=== PATIENT | male | born 1955 | race Hispanic/Latino ===

== ENCOUNTER → 2017-10-16 | Day surgery (SDC) | payer MEDICARE ==
[2017-10-15 09:44] LABS: BASOPHILS % 0.6 % (0.0-1.0); EOSINOPHILS # (AUTO) 0.1 (0.0-0.4); EOSINOPHILS % 1.3 % (0.0-6.0); HEMATOCRIT 48.4 % (38.2-49.6); LYMPHOCYTES # (AUTO) 1.9 (1.0-3.2); MEAN CORPUSCULAR HEMOGLOBIN 28.5 pg (28-32); MEAN CORPUSCULAR HGB CONC 33.1 g/dL (31-35); MEAN CORPUSCULAR VOLUME 86.3 fL (81-99); MONOCYTES # (AUTO) 0.5 (0.2-0.8); MONOCYTES % 8.6 % (4.4-11.3); NEUTROPHILS # (AUTO) 2.9 (2.1-6.9); NEUTROPHILS % 54.3 % (38.7-80.0); PLATELET COUNT 169 x10e3/uL (140-360); RED BLOOD COUNT 5.61 x10e6/uL (4.3-5.7); RED CELL DISTRIBUTION WIDTH 12.7 % (11.7-14.4)
[2017-10-15 10:07] LABS: ALANINE AMINOTRANSFERASE 16 IU/L (0-55); ALBUMIN 3.8 g/dL (3.5-5.0); ALKALINE PHOSPHATASE 69 IU/L (40-150); ANION GAP 9.9 mmol/L (8-16); BLOOD UREA NITROGEN 12 mg/dL (7-26); BUN/CREATININE RATIO 10 (6-25); CALCIUM 9.5 mg/dL (8.4-10.2); CARBON DIOXIDE 29 mmol/L (22-29); CHLORIDE 105 mmol/L (98-107); CHOL/HDL RATIO 6.1 (3.9-4.7); CHOLESTEROL 188 MD/DL (0-199); CREATININE, SERUM 1.16 mg/dL (0.72-1.25); EST GLOMERULAR FILTRATION RATE > 60 ML/MIN (60-); GLUCOSE 143 mg/dL (74-118); HDL CHOLESTEROL 31 MG/DL (40-60); LDL CHOLESTEROL 116 MG/DL (60-130); POTASSIUM 4.9 mmol/L (3.5-5.1); SODIUM 139 mmol/L (136-145); TRIGLYCERIDES 205 MG/DL (0-149)
[2017-10-15 10:21] LABS: INR 0.93; PROTHROMBIN TIME 12.9 seconds (11.9-14.5)
[~2017-10-16] VITALS: Ht 162.6 cm; Wt 72.6 kg
[~2017-10-16] MED LIST: AMITRIPTYLINE H25 MG PO; ASPIRIN 325 MG TAB ONE; ASPIRIN81 MG PO; CLOPIDOGREL BISULFATE 75 MG TAB ONE; FENTANYL CITRATE/PF 100MCG/2 ML INJ ONE; GABAPENTIN400 MG PO; HEPARIN SOD (PORCINE) 1000 UNIT/ML 30ML ONE; HEPARIN SOD/SOD CHLORIDE 2,000 ML ONE; IOPAMIDOL 300MG/ML 100 ML INFUS..BTL IV ONE; IOPAMIDOL 370 MG/ML 200 ML INFUS..BTL INJ ONE; LIDOCAINE HCL 2% LOCAL 20 ML VIAL ONE; LISINOPRIL2.5 MG PO; METFORMIN HCL500 MG PO; MIDAZOLAM HCL 2 MG/2 ML VIAL ONE; NITROGLYCERIN/D5W 200 MCG/ML 250 ML ONE; ONDANSETRON HCL INJ 2 MG/ML VIAL ONE; PLAVIX75 MG PO; SODIUM CHLORIDE 0.9% 1000ML 1,000 ML ONE; TOPROL XL25 MG PO
--- NOTE | 2017-10-17 01:10 | Operative Report ---
DATE OF PROCEDURE: October 16, 2017 PROCEDURE INDICATIONS: Limb-limiting claudication to left more than right lower extremity and chest pain concerning for angina pectoris with prior history of coronary artery disease and prior stent, abnormal stress test. PROCEDURE COMPLICATIONS: None. ESTIMATED BLOOD LOSS: Less than 15 mL. PROCEDURES PERFORMED 1. Left heart catheterization. 2. Selective coronary angiography times 2. 3. Abdominal aortogram. 4. Selective lower extremity, bilateral. 5. Third-order catheter placement from right common femoral artery to left common femoral artery. 6. Additional third-order catheter placement from right common femoral artery to the popliteal artery for additional angiography below the knee vessels to initial visualized vessels. 7. Left peroneal artery percutaneous transluminal angioplasty with 2.5 x 150 ultra risk balloon. 8. Additional percutaneous transluminal angioplasty of the left dorsalis pedis trunk into the left posterior tibial artery with a 3 x 100 ultra risk balloon. 9. Attempted and aborted to cross left anterior tibial SENIOR DESIGN ENGINEER. PROCEDURE SUMMARY: After consent was obtained, patient was prepped and draped in a sterile fashion. The right common femoral artery was locally infiltrated with 2% lidocaine. Access was obtained using the micropuncture kit, and a 6-Fijian sheath was placed. All cannulas were placed over a leading wire. A JL4 and JR4 catheters were used for selective engagement in angiography of the left coronary and right coronary systems respectively. Omni flush catheter was used for abdominal aortogram. A 45 cm up and over a 6-Fijian sheath was used for angiography of the left lower extremity. Sheath was retrieved back also for angiography of the right lower extremity. Medina catheter was used for angiography from the left popliteal position with digital subtraction to the left lower extremity. Whisper wire and a roadrunner wire were used to cross the area of stenosis. A Jimenez wire was used with Whisper wire to the left peroneal artery, and a wire to the right posterior tibial artery. A 2.5 x 150 ultra risk balloon was used for the annuloplasty of the left peroneal artery to 8 atmospheres. Similarly, an angioplasty was performed of the left DP trunk into the posterior tibial artery with a 3 x 100 balloon to 8 atmospheres. FINAL ANGIOGRAPHIC RESULTS: LASHA-III flow with less than 10% residual stenosis across the treated area. No flow-limiting dissection or perforations, and 2-vessel runoff to the left foot. FINDINGS 1. LV pressure was 159/15 with end-diastolic pressure of 27. 2. Aortic pressure was 158/78. LV-gram was not done. 3. Left main large in caliber with 20% distal area of stenosis of the LAD and circumflex. 4. The LAD gives a high take of 1st diagonal, which has 50% stenosis. The distal LAD has 2 areas of patent stent. The first stent has 10% stenosis, and the distal LAD stent has 30% diffuse end-stent restenosis. Additional diagonals arise to the LAD, as well as distal perforators. The distal apical LAD has 40% area of focal stenosis. 5. The circumflex has a 50% ostial to proximal stenosis. It is medium in caliber and gives 2 obtuse marginals. 6. The right coronary artery is small in caliber, and seems to have been chronically occluded 100% with distal filling via collaterals. Overall, small caliber vessel. 7. The infrarenal abdominal aorta has 2 small aneurysms or areas of aortic ectasia. The iliac vessels have significant disease to the left internal iliac terminal branch of about 80%. Otherwise, less than 30% throughout. The femoral vessels, femoral, profunda femoris and superficial femoris bilaterally have less than 30% stenosis and so does the bilateral popliteal arteries. The tibials seemed occluded 100%. The right DP trunk, peroneal and posterior tibial arteries are patent. However, the peroneal arteries have an additional area of 70% mid-stenosis. 8. The left anterior tibial is 100% occluded proximal to distal throughout with no distal reconstitution. The left DP trunk has 60%. The left peroneal artery has 70% stenosis, and left posterior tibial artery has 70% stenosis. Post intervention, there was less than 10% residual stenosis to the left DP trunk, left peroneal artery and left posterior tibial artery. CONCLUSION: Successful revascularization of the left DP trunk, left peroneal artery and left posterior tibial artery with excellent final angiographic results. The left anterior tibial is not amenable for revascularization due to poor outflow of the graft. RECOMMENDATIONS: Aspirin 81 mg daily, clopidogrel 75 mg daily, bed rest, aggressive medical therapy for CAD. Job#: [id number] SC
== END | disposition home or self-care (01) ==
LOC: CATH LAB 07:48
PROVIDERS: ATTEND Internal Medicine Cardiovascular Disease
DX: I25.119 Atherosclerotic heart disease of native coronary artery with unspecified angina pectoris (principal); I25.82 Chronic total occlusion of coronary artery; I70.213 Atherosclerosis of native arteries of extremities with intermittent claudication, bilateral legs; I77.1 Stricture of artery; I25.2 Old myocardial infarction; Z95.5 Presence of coronary angioplasty implant and graft; R94.39 Abnormal result of other cardiovascular function study; E78.5 Hyperlipidemia, unspecified; I10 Essential (primary) hypertension; E11.9 Type 2 diabetes mellitus without complications; G62.9 Polyneuropathy, unspecified; Z01.810 Encounter for preprocedural cardiovascular examination; Z79.82 Long term (current) use of aspirin; Z79.02 Long term (current) use of antithrombotics/antiplatelets; Z82.49 Family history of ischemic heart disease and other diseases of the circulatory system
CPT/HCPCS: 36415; 37228; 37232; 77002; 80053; 80061; 85025; 85610; 93005; C1725 ×2; C1760; C1769; C1887; J1644; J2001; J2250; J2405; J7030; Q9967 ×2; 36140; 75630; 75716; 93452; 93458

== ENCOUNTER 2018-03-12 07:42 | Observation (INO) | payer MEDICARE ==
[2018-03-11 15:26] LABS: BASOPHILS % 0.3 % (0.0-1.0); EOSINOPHILS # (AUTO) 0.1 (0.0-0.4); EOSINOPHILS % 1.7 % (0.0-6.0); HEMATOCRIT 46.1 % (38.2-49.6); LYMPHOCYTES # (AUTO) 2.2 (1.0-3.2); LYMPHOCYTES % 33.8 % (18.0-39.1); MEAN CORPUSCULAR HEMOGLOBIN 27.5 pg (28-32); MEAN CORPUSCULAR HGB CONC 32.5 g/dL (31-35); MEAN CORPUSCULAR VOLUME 84.6 fL (81-99); MONOCYTES # (AUTO) 0.6 (0.2-0.8); MONOCYTES % 8.3 % (4.4-11.3); NEUTROPHILS # (AUTO) 3.7 (2.1-6.9); NEUTROPHILS % 55.6 % (38.7-80.0); PLATELET COUNT 169 x10e3/uL (140-360); RED BLOOD COUNT 5.45 x10e6/uL (4.3-5.7); RED CELL DISTRIBUTION WIDTH 13.6 % (11.7-14.4)
[2018-03-11 15:36] LABS: INR 1.02; PROTHROMBIN TIME 12.6 seconds (11.9-14.5)
[2018-03-11 15:45] LABS: ALANINE AMINOTRANSFERASE 15 IU/L (0-55); ALBUMIN 3.8 g/dL (3.5-5.0); ALBUMIN/GLOBULIN RATIO 0.9 (0.8-2.0); ALKALINE PHOSPHATASE 80 IU/L (40-150); ANION GAP 12.3 mmol/L (8-16); BLOOD UREA NITROGEN 14 mg/dL (7-26); BUN/CREATININE RATIO 13 (6-25); CALCIUM 9.6 mg/dL (8.4-10.2); CARBON DIOXIDE 27 mmol/L (22-29); CHLORIDE 106 mmol/L (98-107); CHOL/HDL RATIO 4.4 (3.9-4.7); CHOLESTEROL 169 MD/DL (0-199); CREATININE, SERUM 1.09 mg/dL (0.72-1.25); EST GLOMERULAR FILTRATION RATE > 60 ML/MIN (60-); GLUCOSE 113 mg/dL (74-118); HDL CHOLESTEROL 38 MG/DL (40-60); LDL CHOLESTEROL 80 MG/DL (60-130); POTASSIUM 4.3 mmol/L (3.5-5.1); SODIUM 141 mmol/L (136-145); TRIGLYCERIDES 256 MG/DL (0-149)
[2018-03-12] VITALS (11 sets, daily range): BP systolic 127–184; BP diastolic 70–84
[~2018-03-12] VITALS: Ht 160 cm; Wt 79.4 kg
[~2018-03-12 07:42] MED LIST changes: -ASPIRIN 325 MG TAB ONE; -CLOPIDOGREL BISULFATE 75 MG TAB ONE; -FENTANYL CITRATE/PF 100MCG/2 ML INJ ONE; -HEPARIN SOD (PORCINE) 1000 UNIT/ML 30ML ONE; -HEPARIN SOD/SOD CHLORIDE 2,000 ML ONE; -IOPAMIDOL 300MG/ML 100 ML INFUS..BTL IV ONE; -IOPAMIDOL 370 MG/ML 200 ML INFUS..BTL INJ ONE; -LIDOCAINE HCL 2% LOCAL 20 ML VIAL ONE; -MIDAZOLAM HCL 2 MG/2 ML VIAL ONE; -NITROGLYCERIN/D5W 200 MCG/ML 250 ML ONE; -ONDANSETRON HCL INJ 2 MG/ML VIAL ONE; -SODIUM CHLORIDE 0.9% 1000ML 1,000 ML ONE
--- OUTSIDE RECORDS SUMMARY | 2018-03-12 07:44 | XMS REPORT ---
[facility] Address Unknown Phone Unavailable Care Team Providers Care Surgery Nurse Name Role Phone MARIETTA ORELLANA Unavailable Unavailable Problems This patient has no known problems. Allergies, Adverse Reactions, Alerts This patient has no known allergies or adverse reactions. Medications This patient has no known medications. Encounters Start Date/Time End Date/Time Encounter Type Admission Type Attending Clinicians Care Facility Care Department Encounter ID 2017-01-15 14:10:34 2017-01-15 14:10:34 Outpatient [facility] [id number] Results Test Description Test Time Test Comments Text Results Atomic Results Result Comments CT ABDOMEN/PELVIS [place] [address] Patient Name: MARIANA MOY MR #: [id number] : 1955 Age/Sex: 61/M Req # : [id number] Adm Physician: Ordered by: MARIETTA ORELLANA MD Report #: [id number] Location: ER Room/Bed: Procedure: [id number] CT/CT ABDOMEN/PELVIS W Exam Date: Exam Time: REPORT STATUS: Signed PROCEDURE: CT ABDOMEN AND PELVIS WITH CONTRAST COMPARISON: None. INDICATIONS: LOWER ABDOMINAL PAIN TECHNIQUE: Multidetector CT scanning of the abdomen and pelvis was performed after the administration of 100 cc of contrast. Coronal and sagittal reformations were obtained. Routine protocol performed. FINDINGS: Lung bases: Clear. The heart is mildly enlarged. No pericardial or pleural effusions. Liver: Decreased in attenuation. A low attenuating lesion in segment 4B measures 10 mm and may connect with the cystic duct. Biliary: Gallbladder appears to be absent. The common hepatic duct measures 14 mm in diameter. The cystic duct is distended and measures 13 mm adjacent to the liver. The common bile duct measures 9 mm in diameter and tapers as it approaches the ampulla. No intraluminal filling defect to suggest choledocholithiasis. Spleen: Normal size and attenuation without mass Pancreas: No mass or ductal dilatation Adrenal Glands: No evidence of mass Kidneys: Symmetric enhancement. A cyst in the posterior cortex of the right kidney measures 1.7 x 1.3 cm. No mass in the left kidney. No hydronephrosis of either kidney. There is a retroaortic left renal vein. Gastrointestinal: The stomach contains enteric contrast and appears normal. There is enteric contrast throughout the small bowel. A right inguinal hernia after a 4.2 cm and contains small bowel as well as a large portion of bladder. The entire hernia was not imaged. There is no evidence of fluid in the hernia sac. A fat containing left inguinal hernia has an aperture of 4 cm. The small bowel is normal in diameter with normal wall thickness. The large bowel is normal in diameter with normal wall thickness. Appendix: Nonvisualized and may be absent or collapsed. Vasculature: Aorta: Partially thrombosed saccular aneurysm in the infrarenal aorta measures 1.8 x 1.3 cm. At the superior margin of the aneurysm sac is a penetrating ulcer measuring 7 mm in diameter and 2 cm in length. There are diffuse atherosclerotic calcifications throughout aorta and iliac arteries. IVC: Normal in morphology. Peritoneum/Retroperitoneum: No free fluid or fluid collection. Bladder: No intraluminal filling defects in the bladder. Extension of the right bladder ear into an inguinal hernia as mentioned above. No ureteral dilatation. Musculoskeletal: There are degenerative changes of the spine consistent with age. Vertebral body heights are symmetric. There are no destructive lesions. A fat-containing hernia in the lateral right abdominal wall after 8.5 cm. More medially a second fat containing abdominal wall hernia measures 2.2 cm. These have the appearance of incisional hernias. CONCLUSION: 1. Right inguinal hernia containing small bowel and bladder. No evidence of bowel obstruction. Inflammation of the bladder wall cannot be entirely excluded as a potential cause of abdominal pain. 2. Fat-containing hernias of the right anterior normal wall. Fat containing left inguinal hernia. 3. Penetrating aortic ulcer at the top of a partially thrombosed saccular abdominal aortic aneurysm. 4. Cholecystectomy with prominence of the cystic duct as well as the biliary tree suggestive of reservoir effect. A cystic structure in the liver may be part of the ectatic cystic duct or represent a small hepatic cyst. 5. Right renal cyst. 6. Mild hepatic steatosis. Dictated by : Ector Dickinson M.D. on 07/26/2017 at 18:51 Electronically approved by : Ector Dickinson M.D. on 07/26/2017 at 18:51 Dictated By: ECTOR DICKINSON MD 50 COPY TO: MARIETTA ORELLANA MD
[2018-03-12] MEDS ORDERED: LIDOCAINE HCL 2% LOCAL 20 ML VIAL ONE (08:13)
[2018-03-12] MEDS ORDERED: IOPAMIDOL 370 MG/ML 200 ML INFUS..BTL INJ ONE (08:14)
[2018-03-12] MEDS ORDERED: HEPARIN SOD/SOD CHLORIDE 1,000 ML ONE ×2 (08:14→08:42)
[2018-03-12] MEDS ORDERED: HEPARIN SOD (PORCINE) 1000 UNIT/ML 30ML ONE (08:36)
[2018-03-12] MEDS ORDERED: MIDAZOLAM HCL 2 MG/2 ML VIAL ONE (08:36)
[2018-03-12] MEDS ORDERED: VERAPAMIL HCL 2.5 MG/ML 2 ML VIAL ONE (08:36)
[2018-03-12] MEDS ORDERED: FENTANYL CITRATE/PF 100MCG/2 ML INJ ONE (08:37)
[2018-03-12] MEDS ORDERED: NITROGLYCERIN/D5W 200 MCG/ML 250 ML ONE (08:37)
[2018-03-12] MEDS ORDERED: SODIUM CHLORIDE 0.9% 1000ML 1,000 ML ONE (08:41)
[2018-03-12] MEDS ORDERED: ASPIRIN 325 MG TAB ONE (09:12)
[2018-03-12] MEDS ORDERED: ADENOSINE 3MG/1ML 30ML VIAL ONE ×2 (09:31→09:57)
[2018-03-12] MEDS ORDERED: ADENOSINE 6MG/2ML 1 ML ONE ×2 (09:31→09:56)
[2018-03-12] MEDS ORDERED: SODIUM CHLORIDE 0.9% 250ML 250 ML ONE (09:32)
[2018-03-12] MEDS ORDERED: SODIUM CHLORIDE 0.9% 100 ML 100 ML ONE ×2 (09:45→09:57)
[2018-03-12] MEDS ORDERED: SODIUM CHLORIDE 0.9% 50ML 50 ML ONE (09:56)
[2018-03-12] MEDS ORDERED: CLOPIDOGREL BISULFATE 75 MG TAB ONE ×2 (10:41→10:42)
[2018-03-12] MEDS ORDERED: DEXTROSE 50% SYRINGE 50 ML IV PRN (15:45)
[2018-03-12] MEDS: GABAPENTIN 400 MG CAP PO SCH (16:36)
[2018-03-12] MEDS: INSULIN REGULAR, HUMAN 100 UNIT/1 ML 3ML VIAL SQ SCH ×2 (16:50→20:23)
[2018-03-12] MEDS ORDERED: AMITRIPTYLINE HCL 25 MG TAB PO SCH (21:00)
--- NOTE | 2018-03-12 22:52 | Operative Report ---
DATE OF PROCEDURE: March 12, 2018 INDICATIONS: Unstable angina. PROCEDURES PERFORMED 1. Left heart catheterization. 2. Selective coronary angiography x2. 3. First diagonal fractional flow reserve at peak hyperemia with IV Adenosine 0.66. 4. Fractional flow reserve flow reserve of the left circumflex at peak hyperemia with IV Adenosine 0.93. 5. Right coronary artery drug eluting stent PCI with overlapping 2.25 x 32 [employer] Synergy drug eluting stent and 2.5 x 32 proximal to ostial [employer] Synergy drug eluting stent. 6. Right radial TR band hemostasis. PROCEDURE COMPLICATIONS: None. ESTIMATED BLOOD LOSS: Less than 15 mL. PROCEDURE SUMMARY: After consent was obtained, the patient was prepped and draped in a sterile fashion and right radial site was locally infiltrated with 2% lidocaine. Access was obtained and a 5-Cayman Islander outer diameter slender sheath advanced. Tik catheter was used for universal engagement of left main, and then the right coronary artery as well as to cross the aortic valve for hemodynamic measurements. Next the LAD 3.5, no side holes, guide catheter, 5-Cayman Islander was used for the FFR portion of the procedure. Heparin to maintain HCT over 250. Aspirin and Plavix were administered. FFR wire was positioned across the of the LAD and into the 1st diagonal. At peak hyperemia, FFR was 0.66. Of note, the resting FFR was 0.8 on the diagonal. Attention was then directed to the circumflex with ostial stenosis, which was 60% by visual estimation. By FFR it was 0.93 at peak hyperemia. Attention then directed to the right coronary artery. Due to 99% LASHA 2.5 flow across this vessel, it was decided to intervene on this vessel as follows: RCA PCI: Runthrough wire was advanced across the area of stenosis using a JR4 5-Cayman Islander, no side holes, guide catheter. Visualization was performed with a 2.0 x 12 [employer] Emerge balloon to 15 atmospheres in the ostial proximal segment of RCA. The balloon was then exchanged for a 1.5 x 12 [employer] Emerge balloon used to inflate materially across the full extent of the type C long diffuse area of stenosis from ostium to mid RCA. Material inflation was 12 to 18 atmospheres. This was followed by advancement of Synergy 2.25 x 32 mm drug eluting stent placed into the mid to distal portion of the RCA and deployed to 12 atmospheres and then after the balloon was brought back a couple of millimeters again inflated to 15 atmospheres. The proximal portion of the RCA into the ostium was then inflated with this balloon to 18 atmospheres. This was followed by a 2.5 x 32 mm [employer] Synergy drug eluting stent deployed overlapping and into the ostium and RCA to 20 atmospheres. The area of overlap was additionally post dilated with an NC 2.5 x 8 balloon to 20 to 22 atmospheres anterior inflation. Final angiography revealed LASHA 3 flow. No dissections and no perforations with 0 percent residual stenosis across the RCA. TR band hemostasis was then applied. ANGIOGRAPHIC FINDINGS: 1. Left main large in caliber with distal 20% stenosis gives an LAD and circumflex. 2. LAD had area of stent from proximal to distal. The stent itself has less than 30% in-stent restenosis. First diagonal jailed by the stent. Ostially, there is 90% stenosis and in the proximal to mid portion of the diagonal there is additional 50% to 60% stenosis. By FFR, this vessel at peak hyperemia was 0.66 consistent with severe stenosis. The distal LAD has an additional area of 50% stenosis local and at the wrap around portion of the apical LAD there is additional 70% tubular stenosis, at this point the vessel being less than 2 mm in caliber. 3. Circumflex has ostial 60% stenosis and proximal 50% stenosis. Distal to the 2 lesions there are 2 obtuse marginals, left posterolateral branches at LPDA. The second obtuse marginal has 70% proximal stenosis. At this point, it is 1.5 mm in caliber. This is a dominant circumflex. At peak hyperemia, FFR beyond stenosis of the circumflex was 0.93. 4. The right coronary artery preintervention was 95% to 99% stenosis with LASHA 2 flow. Post intervention was 0% residual stenosis with LASHA 3 flow. RCA gives a distal RPDA and a small RPLV. The dominant vessel is the circumflex. 5. The left ventricle pressure was 136/4 with end-diastolic pressure of 20. 6. Aortic pressure was 136/69. CONCLUSION: Multivessel coronary artery disease with severe stenosis of 1st diagonal fixed by an LAD stent. Moderate stenosis of the circumflex including ostium of circumflex in a dominant circumflex artery. Right coronary artery severe stenosis, now status post drug eluting stent PCI to the RCA. RECOMMENDATIONS: 1. Aspirin and Plavix. 2. Observe overnight, weaning TR band. 3. At a later date, plan for a staged PCI of the diagonal. This will be a complicated procedure, prefer femoral approach with a 7-Cayman Islander to 8-Cay[place] Islander sheath, and kissing balloon intervention likely needed. Will need diagonal long area of stent for type C lesion bifurcation with long branch stenosis and a stent off the diagonal. Might need additional angioplasty, possibly additional stenting to the LAD. 4. Assess response from symptomatic standpoint with a PCI done today. 5. Follow up in the office in one to two weeks. 6. This has been extensively discussed with the patient and family members. Job#: [id number] TRACIE
[2018-03-13] VITALS: BP 153/77
[2018-03-13 04:00] VITALS: BP 121/70
[2018-03-13] MEDS: INSULIN REGULAR, HUMAN 100 UNIT/1 ML 3ML VIAL SQ SCH ×2 (07:30→12:30)
[2018-03-13 07:49] VITALS: BP 129/80
[2018-03-13] MEDS: GABAPENTIN 400 MG CAP PO SCH (08:28)
[2018-03-13 08:37] VITALS: BP 129/80
[2018-03-13] MEDS ORDERED: CLOPIDOGREL BISULFATE 75 MG TAB PO SCH (09:00)
[2018-03-13] MEDS ORDERED: ASPIRIN 81 MG CHEW TAB PO SCH (09:00)
[2018-03-13] MEDS ORDERED: LISINOPRIL 2.5 MG TAB PO SCH (09:00)
[2018-03-13] MEDS ORDERED: METOPROLOL SUCCINATE 25 MG TAB XL PO SCH (09:00)
[2018-03-13 11:36] VITALS: BP 130/74
== END 2018-03-13 13:05 | disposition home or self-care (01) ==
LOC: CATH LAB 07:42 → IMCU 14:55
PROVIDERS: ADMIT Internal Medicine Cardiovascular Disease; ATTEND Internal Medicine Cardiovascular Disease
PROC: 4A023N7 Measurement of Cardiac Sampling and Pressure, Left Heart, Percutaneous Approach (ICD-10-PCS; principal; 2018-03-12)
PROC: B2111ZZ Fluoroscopy of Multiple Coronary Arteries using Low Osmolar Contrast (ICD-10-PCS; 2018-03-12)
PROC: B2151ZZ Fluoroscopy of Left Heart using Low Osmolar Contrast (ICD-10-PCS; 2018-03-12)
PROC: 027034Z Dilation of Coronary Artery, One Artery with Drug-eluting Intraluminal Device, Percutaneous Approach (ICD-10-PCS; 2018-03-12)
DX: I25.110 Atherosclerotic heart disease of native coronary artery with unstable angina pectoris (principal); I50.20 Unspecified systolic (congestive) heart failure; E11.9 Type 2 diabetes mellitus without complications; E78.5 Hyperlipidemia, unspecified
CPT/HCPCS: 36415 ×3; 77002; 80053; 80061; 82948 ×2; 85025; 85610; 92921; 92928; 93005; 93458; C1769; C1874; C1887; G0378 ×2; J0153 ×2; J1644; J2001; J2250; J7030; J7050; Q9967; 36140; 92920; 93571

== ENCOUNTER 2018-06-27 08:49 | Observation (INO) | payer MEDICARE ==
[~2018-06-27] VITALS: Ht 157.5 cm; Wt 73.0 kg
[2018-06-27] MEDS ORDERED: ASPIRIN 81 MG CHEW TAB PO ONE ×2 (09:00→10:00)
[2018-06-27 09:08] LABS: BASOPHILS % 0.3 % (0.0-1.0); EOSINOPHILS # (AUTO) 0.1 (0.0-0.4); EOSINOPHILS % 1.2 % (0.0-6.0); HEMOGLOBIN 15.1 g/dL (14.0-18.0); MEAN CORPUSCULAR HEMOGLOBIN 28.1 pg (28-32); MEAN CORPUSCULAR HGB CONC 32.8 g/dL (31-35); MEAN CORPUSCULAR VOLUME 85.7 fL (81-99); MONOCYTES # (AUTO) 0.5 (0.2-0.8); MONOCYTES % 8.8 % (4.4-11.3); NEUTROPHILS # (AUTO) 3.3 (2.1-6.9); NEUTROPHILS % 55.5 % (38.7-80.0); PLATELET COUNT 161 x10e3/uL (140-360); RED BLOOD COUNT 5.37 x10e6/uL (4.3-5.7); RED CELL DISTRIBUTION WIDTH 13.2 % (11.7-14.4)
[2018-06-27 09:23] LABS: ALANINE AMINOTRANSFERASE 17 IU/L (0-55); ALBUMIN 3.9 g/dL (3.5-5.0); ALBUMIN/GLOBULIN RATIO 1.1 (0.8-2.0); ALKALINE PHOSPHATASE 69 IU/L (40-150); BLOOD UREA NITROGEN 13 mg/dL (7-26); BUN/CREATININE RATIO 12 (6-25); CALCIUM 9.1 mg/dL (8.4-10.2); CARBON DIOXIDE 26 mmol/L (22-29); CHLORIDE 105 mmol/L (98-107); CREATINE KINASE 85 IU/L (30-200); CREATININE, SERUM 1.12 mg/dL (0.72-1.25); EST GLOMERULAR FILTRATION RATE > 60 ML/MIN (60-); GLUCOSE 118 mg/dL (74-118); SODIUM 139 mmol/L (136-145)
--- NOTE | 2018-06-27 09:43 | Diagnostic Imaging Report ---
PROCEDURE: A single AP view of the chest. COMPARISON: None. INDICATIONS: CHEST PAIN, DIZZINESS, WEAKNESS FINDINGS: Lines/tubes: Spinal stimulator probe overlies the spine and lateral left upper quadrant of the abdomen. Lungs: The lungs are well inflated and clear. There is no evidence of pneumonia or pulmonary edema. Pleura: There is no pleural effusion or pneumothorax. Heart and mediastinum: The heart is prominent. Bones: No acute bony abnormality. IMPRESSION: No acute cardiopulmonary disease. John Paul Browning D.O. Dictated by: John Paul Browning D.O. on 06/27/2018 at 9:49 Electronically approved by: John Paul Browning D.O. on 06/27/2018 at 9:49
[2018-06-27 13:40] VITALS: BP 145/71
[2018-06-27 14:44] VITALS: BP 145/71
--- NOTE | 2018-06-27 15:02 | Consultation ---
DATE OF CONSULTATION: June 27, 2018 CARDIOLOGY PROGRESS NOTE REFERRING PHYSICIAN: Edward Davis MD CHIEF COMPLAINT: Chest pain and leg pain. HISTORY OF PRESENT ILLNESS: Mr. Montesinos is a pleasant, 62-year-old man with history of chronic systolic heart failure, coronary artery disease, status post prior revascularizations / PCI of complex diagonal / LAD bifurcation as well as prior RCA drug-eluting stent PCI. He has known peripheral arterial disease. He has intermittent episodes of chest pain, moderate in severity and lasted about 10 to 15 minutes. He has had episodes of chest pain ongoing for various months; however, the pain does not seem to be increasing in frequency, duration or intensity. It is somewhat atypical in nature. He is not complaining of exertional component of the chest discomfort with his current level of activity, which is somewhat limited. He does have leg discomfort bilaterally. He denies any shortness of breath, syncope, palpitations or other complaints at this point in time. On telemetry review, however, there are some PACs noted on sinus bradycardia. His ECG shows normal sinus rhythm with inferior and anterior infarct, age, undetermined REVIEW OF SYSTEMS: A 12-system review is negative except for as noted above. ALLERGIES: PER EMR. PAST MEDICAL HISTORY: Hypertension, dyslipidemia, coronary artery disease, PAD, and congestive heart failure. FAMILY HISTORY: Noncontributory. SOCIAL HISTORY: No active smoking. No drugs. No alcohol. PHYSICAL EXAMINATION VITAL SIGNS: Reviewed and stable. The O2 sat is 99%. Heart rate in the low 50s. Respiratory rate 18. Blood pressure 140/80. GENERAL: No acute distress. Alert. NECK: No JVD. No thyromegaly. No carotid bruit. CHEST: Clear to auscultation. CARDIOVASCULAR: Regular rate and rhythm, normal S1 and S2. No S3. No S4. Positive murmur. ABDOMEN: Soft. EXTREMITIES: Trace edema. Palpable dorsalis pedis and posterior tibial pulses bilaterally. STUDIES: Reviewed. ECG as described above. Potassium 4, creatinine 1.12, bicarbonate 26, BUN 15. Normal transaminases. ASSESSMENT 1. Coronary artery disease, status post prior revascularizations. 2. Peripheral arterial disease. 3. Chronic systolic heart failure. 4. Dyslipidemia. 5. Symptoms of atypical chest pain and presenting with pain to bilateral lower extremities at rest. Unclear if claudication, however possible. RECOMMENDATIONS 1. Obtain arterial Doppler BLE, and echo 2. Serial cardiac enzymes. 3. Keep on telemetry PACs noted. Arrhythmia possible etiology for atypical chest discomfort spells. 4. Resume cardiac medications including statin, beta atif, MOMO inhibitor, and dual antiplatelet therapy. Thank you for allowing me to participate in the care of Mr. Montesinos. Will follow along with you. Job#: [id number] MUSTAPHA MEYERS
[2018-06-27 16:00] VITALS: BP 144/72
[2018-06-27 18:03] LABS: CREATINE KINASE MB 1.1 ng/mL (0-5.0)
[2018-06-27 20:00] VITALS: BP 140/68
--- NOTE | 2018-06-27 22:12 | Diagnostic Imaging Report ---
History: Neck pain and weakness Comparison studies: None Technique: Axial images were obtained through the cervical region. Coronal and sagittal images reconstructed from the axial data. Intravenous contrast: Isovue 370 Findings: Atlantoaxial articulation: Intact Alignment: Normal lordosis No scoliosis. Cervicomedullary junction: No abnormalities. Patent foramen magnum. Soft tissues: No gross abnormalities. Calcification of the ligamentum nuclei Vertebrae: No fractures, neoplasm or infection. Degenerative changes: Anterior projecting osteophytes from C3 through C7, which can be seen in DISH. Grossly patent canal and foramina. No abnormal enhancement. IMPRESSION: 1. Grossly patent canal and foramina. No sizable neck mass or abnormal enhancement. 2. Anterior flowing osteophytes at the mid and inferior cervical spine which can be seen in diffuse idiopathic spinal hyperostosis. Signed by: DR Mc Lynne M.D. on 06/27/2018 10:09 PM
[2018-06-28] VITALS: BP 143/78
[2018-06-28] MEDS ORDERED: SODIUM CHLORIDE 0.9% 50ML 50 ML ONE (01:22)
[2018-06-28] MEDS ORDERED: IOPAMIDOL 370 MG/ML 200 ML INFUS..BTL INJ ONE (01:22)
[2018-06-28 02:27] LABS: CREATINE KINASE MB 0.8 ng/mL (0-5.0)
[2018-06-28 04:00] VITALS: BP 125/68
[2018-06-28 08:08] VITALS: BP 136/68
[2018-06-28] MEDS ORDERED: CLOPIDOGREL BISULFATE 75 MG TAB PO SCH (09:00)
[2018-06-28] MEDS ORDERED: METOPROLOL SUCCINATE 25 MG TAB XL PO SCH (09:00)
[2018-06-28] MEDS ORDERED: LISINOPRIL 2.5 MG TAB PO SCH (09:00)
[2018-06-28] MEDS ORDERED: ASPIRIN 81 MG CHEW TAB PO SCH (09:00)
[2018-06-28 12:12] VITALS: BP 122/84
[2018-06-28] MEDS ORDERED: GABAPENTIN100 MG (13:05)
== END 2018-06-28 13:21 | disposition home or self-care (01) ==
LOC: ER 08:49 → ERHOLD 10:51 → IMCU 13:38
PROVIDERS: ADMIT Family Medicine; ATTEND Family Medicine
DX: R07.89 Other chest pain (principal); I25.10 Atherosclerotic heart disease of native coronary artery without angina pectoris; Z95.5 Presence of coronary angioplasty implant and graft; E78.5 Hyperlipidemia, unspecified; I73.9 Peripheral vascular disease, unspecified; M54.10 Radiculopathy, site unspecified; I11.0 Hypertensive heart disease with heart failure; I50.22 Chronic systolic (congestive) heart failure
CPT/HCPCS: 36415 ×2; 71045; 72126; 80053; 80061; 82550 ×2; 82553 ×2; 82948; 83036; 84443; 84484 ×2; 85025; 93005; 93306; 93925; 99284; G0378 ×2; Q9967

== ENCOUNTER → 2019-06-15 | Outpatient (CLI) | payer MEDICARE ==
[~2019-06-15] MED LIST changes: +GABAPENTIN100 MG; +IOPAMIDOL 370 MG/ML 200 ML INFUS..BTL INJ ONE; +SODIUM CHLORIDE 0.9% 50ML 50 ML ONE
[2019-06-15 12:27] LABS: BLOOD UREA NITROGEN 11 mg/dL (7-26); BUN/CREATININE RATIO 11 (6-25); CREATININE, SERUM 1.02 mg/dL (0.72-1.25); EST GLOMERULAR FILTRATION RATE > 60 ML/MIN (60-)
--- NOTE | 2019-06-15 13:29 | Diagnostic Imaging Report ---
EXAM: CT Abdomen and Pelvis WITH intravenous contrast INDICATION: Abdominal pain COMPARISON: None. TECHNIQUE: Abdomen and pelvis were scanned utilizing a multidetector helical scanner from the lung base to the pubic symphysis after administration of IV contrast. Coronal and sagittal reformations were obtained. Routine protocol was performed. Scan was performed when during portal venous phase. IV CONTRAST: 100mL of Isovue 370 ORAL CONTRAST: Water COMPLICATIONS: None RADIATION DOSE: Total DLP: 330.9 mGy*cm Dose modulation, iterative reconstruction, and/or weight based adjustment of the mA/kV was utilized to reduce the radiation dose to as low as reasonably achievable. FINDINGS: LOWER THORAX: No lung base consolidation. Atherosclerotic calcifications of the coronary arteries. HEPATOBILIARY: Mild hepatic steatosis. 1 cm right hepatic hypodensity along the gallbladder fossa (series 2 image 25) is indeterminate but may represent focal fat. No biliary ductal dilatation. The gallbladder is decompressed. SPLEEN: No splenomegaly. PANCREAS: No focal masses or ductal dilatation. ADRENALS: No adrenal nodules. KIDNEYS/URETERS: No hydronephrosis or renal calculi. 2 cm simple cyst at the right posterior midpole. PELVIC ORGANS/BLADDER: Prostate measures 4.6 cm with focal internal calcification. Right inguinal hernia contains part of the bladder. PERITONEUM / RETROPERITONEUM: No free air or fluid. LYMPH NODES: No lymphadenopathy. VESSELS: Atherosclerotic calcifications of the abdominal aorta. Infrarenal abdominal aortic ectasia with areas of mural thrombus and focal penetrating ulcer just superior to the aortic bifurcation. The iliac and femoral arteries are patent. GI TRACT: No distention or wall thickening. BONES AND SOFT TISSUES: Left chest wall implanted device with single lead projecting anterior to the sternum and superior to the field of view. Right anterior abdominal Spigelian hernia containing fat. IMPRESSION: Ectatic infrarenal abdominal aorta measuring up to 2.7 cm with areas of mural thrombus and focal penetrating ulcer just superior to the aortic bifurcation. Right anterior abdominal wall Spigelian hernia containing fat. Right inguinal hernia contains part of the bladder. Hepatic steatosis. Signed by: Charlie Doran MD on 06/15/2019 1:26 PM
== END ==
LOC: CT 11:28
PROVIDERS: ATTEND Internal Medicine Gastroenterology
DX: R10.10 Upper abdominal pain, unspecified (principal); K40.90 Unilateral inguinal hernia, without obstruction or gangrene, not specified as recurrent; K76.0 Fatty (change of) liver, not elsewhere classified
CPT/HCPCS: 36415; 74177; 82565; 84520; Q9967

== ENCOUNTER 2020-05-21 23:25 | Emergency (ER) | payer MEDICARE ==
[~2020-05-21] VITALS: Ht 157.5 cm; Wt 73.0 kg
[~2020-05-21 23:25] MED LIST changes: -IOPAMIDOL 370 MG/ML 200 ML INFUS..BTL INJ ONE; -SODIUM CHLORIDE 0.9% 50ML 50 ML ONE
--- NOTE | 2020-05-21 23:54 | Emergency Department Note ---
History of Present Illnes History of Present Illness Chief Complaint: General Medicine Complaints History of Present Illness This is a 64 year old male AAOX2 PERSON AND PLACE. PRESENTS TO ED WITH REPORT OF CONFUSION X2 DAYS; PERRLA, HAND NATURAL FABRICATOR ARE EQUAL, AND STRONG; GAIT STEADY. PT AND FAMILY DENY FEVER, COUGH, DENY FALLING. Historian: Patient, Family Member Arrival Mode: Car Onset (how long ago): day(s) (2) Location: NONE Quality: CONFUSION Radiation: Reports non-radiation Severity: mild Onset quality: gradual Duration (how long): day(s) (2) Timing of current episode: constant Progression: unchanged Chronicity: new Context: Denies recent illness, Denies recent surgery Relieving factors: none Exacerbating factors: none Associated symptoms: Reports denies other symptoms Past Medical/Family History Physician Review I have reviewed the patient's past medical and family history. Any updates have been documented here. Past Medical History Recent Fever: No Clinical Suspicion of Infectio: No New/Unexplained Change in Ment: Yes Past Medical History: Hypertension, Diabetes, [place], CAD, Hyperlipedemia Other Medical History: HIGH CHOLESTEROL [place] X3 hernia Past Surgical History: Cholecysctectomy Other Surgery: CARDIAC STENTS, HERNIA REPAIR LT EYE REMOVED DEFIB IMPLANTED Social History Smoking Cessation: Never Smoker Alcohol Use: None Any Illegal Drug Use: No Family History Family history of heart diseas: Yes Other family history HTN, DM, CAD Other Last Tetanus: UNKNOWN Review of Systems Review of Systems Constitutional: Reports no symptoms EENTM: Reports no symptoms Cardiovascular: Reports no symptoms Respiratory: Reports no symptoms Gastrointestinal: Reports no symptoms Genitourinary: Reports no symptoms Musculoskeletal: Reports no symptoms Integumentary: Reports no symptoms Neurological: Reports as per HPI Psychological: Reports no symptoms Endocrine: Reports no symptoms Hematological/Lymphatic: Reports no symptoms Physical Exam Related Data Allergies: Coded Allergies: No Known Allergies (Unverified , 06/27/18) Triage Vital Signs Vital Signs Date Time Temp Pulse Resp B/P (MAP) Pulse Ox O2 Delivery O2 Flow Rate FiO2 05/21/20 23:41 98.2 58 16 163/74 99 Room Air Vital signs reviewed: Yes Physical Exam CONSTITUTIONAL Constitutional: Present well-developed, Present well-nourished HENT HENT: Present normocephalic, Present atraumatic, Present oropharynx clear/moist, Present nose normal HENT L/R: Present left ext ear normal, Present right ext ear normal EYES Eyes: Reports PERRL, Reports conjunctivae normal NECK Neck: Present ROM normal PULMONARY Pulmonary: Present effort normal, Present breath sounds normal CARDIOVASCULAR Cardiovascular: Present regular rhythm, Present heart sounds normal, Present capillary refill normal, Present normal rate GASTROINTESTINAL Abdominal: Present soft, Present nontender, Present bowel sounds normal GENITOURINARY Genitourinary: Present exam deferred SKIN Skin: Present warm, Present dry MUSCULOSKELETAL Musculoskeletal: Present ROM normal NEUROLOGICAL Neurological: Present alert, Present no gross motor or sensory deficits, Present other (DISORIENTED TO TIME ONLY, NO OTHER NEURO DEFECITS NOTED) PSYCHOLOGICAL Psychological: Present mood/affect normal, Present judgement normal Results Laboratory Laboratory Laboratory Tests Test 05/21/20 23:55 05/21/20 23:45 Urine Color Yellow (YELLOW) Urine Clarity Clear (CLEAR) Urine pH 6 (5 - 7) Urine Specific [place] 1.020 (1.010-1.025) Urine Protein Negative (NEGATIVE) Urine Glucose (UA) Negative (NEGATIVE) Urine Ketones Negative (NEGATIVE) Urine Blood Trace (NEGATIVE) Urine Nitrite Negative (NEGATIVE) Urine Bilirubin Negative (NEGATIVE) Urine Urobilinogen 0.2 mg/dL (0.2 - 1) Urine Leukocyte Esterase Negative (NEGATIVE) Urine RBC 0-5 /HPF (0-5) Urine WBC 0-5 /HPF (0-5) Urine Epithelial Cells Few /LPF (NONE) Urine Bacteria Few /HPF (NONE) White Blood Count 7.15 x10e3/uL (4.8-10.8) Red Blood Count 5.29 x10e6/uL (4.3-5.7) Hemoglobin 15.0 g/dL (14.0-18.0) Hematocrit 47.0 % (38.2-49.6) Mean Corpuscular Volume 88.8 fL (81-99) Mean Corpuscular Hemoglobin 28.4 pg (28-32) Mean Corpuscular Hemoglobin Concent 31.9 g/dL (31-35) Red Cell Distribution Width 12.9 % (11.7-14.4) Platelet Count 176 x10e3/uL (140-360) Neutrophils (%) (Auto) 61.7 % (38.7-80.0) Lymphocytes (%) (Auto) 27.4 % (18.0-39.1) Monocytes (%) (Auto) 8.8 % (4.4-11.3) Eosinophils (%) (Auto) 1.5 % (0.0-6.0) Basophils (%) (Auto) 0.3 % (0.0-1.0) Neutrophils # (Auto) 4.4 (2.1-6.9) Lymphocytes # (Auto) 2.0 (1.0-3.2) Monocytes # (Auto) 0.6 (0.2-0.8) Eosinophils # (Auto) 0.1 (0.0-0.4) Basophils # (Auto) 0.0 (0.0-0.1) Absolute Immature Granulocyte (auto 0.02 x10e3/uL (0-0.1) Sodium Level 141 mmol/L (136-145) Potassium Level 4.5 mmol/L (3.5-5.1) Chloride Level 105 mmol/L (98-107) Carbon Dioxide Level 27 mmol/L (22-29) Anion Gap 13.5 mmol/L (8-16) Blood Urea Nitrogen 13 mg/dL (7-26) Creatinine 1.21 mg/dL (0.72-1.25) Estimat Glomerular Filtration Rate 60 ML/MIN (60-) BUN/Creatinine Ratio 11 (6-25) Glucose Level 130 mg/dL (74-118) Calcium Level 9.3 mg/dL (8.4-10.2) Total Bilirubin 0.6 mg/dL (0.2-1.2) Aspartate Amino Transf (AST/SGOT) 18 IU/L (5-34) Alanine Aminotransferase (ALT/SGPT) 18 IU/L (0-55) Alkaline Phosphatase 84 IU/L (40-150) Creatine Kinase 71 IU/L (30-200) Creatine Kinase MB < 1.00 ng/mL (0-4.3) Troponin I < 0.05 ng/mL (0.0-0.40) Total Protein 7.7 g/dL (6.5-8.1) Albumin 4.2 g/dL (3.5-5.0) Globulin 3.5 g/dL (2.3-3.5) Albumin/Globulin Ratio 1.2 (0.8-2.0) Lab results reviewed: Yes Imaging Imaging results reviewed: Yes Impressions Procedure: [id number] CT/CT BRAIN WO Exam Date: 05/22/20 Exam Time: 004 REPORT STATUS: Signed EXAMINATION: Head CT without contrast. HISTORY:Altered mental status. COMPARISON:None. TECHNIQUE: Multidetector axial images were obtained from the foramen magnum to the vertex without contrast. The images were reconstructed using brain and bone algorithms. Thin section brain images were reformatted into coronal and sagittal planes. Dose modulation, iterative reconstruction, and/or weight based adjustment of the mA/kV was utilized to reduce the radiation dose to as low as reasonably achievable. Intravenous contrast: None IMAGE QUALITY: Acceptable. FINDINGS: Skull/scalp: No lytic or blastic. lesions. No surgical changes. Parenchyma: Nonspecific few, scattered supratentorial white matter hypodensity are likely related to small vessel ischemic changes. No acute hemorrhage, mass or acute major vascular territorial infarct. Arteries: No density suggestive of thrombosis. Dural sinuses: No abnormal density suggestive of thrombosis. Ventricles: No hydrocephalus or displacement. Extra-axial spaces: No abnormal density. Brain volume: Mild generalized cerebral volume loss. Craniocervical junction: No mass, Chiari malformation, or basilar invagination. Sella: No mass. Paranasal/mastoid sinuses: Imaged portions unremarkable. IMPRESSION: No acute intracranial abnormality. Mild generalized cerebral volume loss. Mild supratentorial white matter microvascular ischemic changes. Signed by: Dr. Maru Mcdonnell M.D. on 05/22/2020 12:58 AM Dictated By: MARU MCDONNELL MD Transcribed By: WARREN on 05/22/2057 COPY TO: EMMANUEL PHILLIPS MD~ Procedures 12 Lead ECG Interpretation ECG Interpretation : ECG: ECG 1 Lead Material Handler: Interpreted by ED physician Date: May 21, 2020 Time: 23:59 Rhythm: sinus bradycardia Rate: bradycardia BPM: 58 QRS axis: left ST segments normal: Yes T waves normal: Yes Q waves: III, aVF, V1, V2, V3 Clinical Impression: abnormal ECG Assessment & Plan Medical Decision Making MDM PT WITH CONFUSION FOR 2 DAYS CBC, CMP, EKG, CARDIAC ENZYMES, CXR, CT BRAIN, UA ORDERED TO EVAL FOR ELECTROLYTE ABNORMALITY, PNEUMONIA, UTI, INTRACRANIAL ABNORMALITY, DEHYDRATION, MYOCARDIAL INFARCTION NOTHING FOUND ON EXAM OR WORKUP TO EXPLAIN PT'S CONFUSION, I SPOKE WITH PT AND FAMILY, RECOMMEND FOLLOW UP WITH NEUROLOGIST FOR FURTHER WORKUP OF PT'S CONFUSION Assessment & Plan Final Impression: (1) Confusion Depart Disposition: HOME, SELF-CARE Last Vital Signs Date Time Temp Pulse Resp B/P (MAP) Pulse Ox O2 Delivery O2 Flow Rate FiO2 05/21/20 23:41 98.2 58 16 163/74 99 Room Air Home Meds Reported Medications Gabapentin (GABAPENTIN) 100 Mg Capsule, BID 06/28/18 Metoprolol Succinate (TOPROL XL) 25 Mg Tab.er.24h, 25 MG PO DAILY, #30 TAB 07/26/17 Amitriptyline Hcl (AMITRIPTYLINE HCL) 25 Mg Tablet, 25 MG PO HS, #30 TAB 07/26/17 Lisinopril (LISINOPRIL) 2.5 Mg Tablet, 2.5 MG PO DAILY, #30 TAB 07/26/17 Aspirin (ASPIRIN) 81 Mg Tab.chew, 1 TAB PO DAILY 07/26/17 Clopidogrel Bisulfate* (PLAVIX) 75 Mg Tablet, 75 MG PO DAILY, #30 TAB 07/26/17 Metformin Hcl (METFORMIN HCL) 500 Mg Tablet, 1000 MG PO BID, #60 TAB 07/26/17 EMMANUEL PHILLIPS MD May 21, 2020 23:54
[2020-05-22 00:13] LABS: BASOPHILS % 0.3 % (0.0-1.0); EOSINOPHILS # (AUTO) 0.1 (0.0-0.4); EOSINOPHILS % 1.5 % (0.0-6.0); LYMPHOCYTES % 27.4 % (18.0-39.1); MEAN CORPUSCULAR HEMOGLOBIN 28.4 pg (28-32); MEAN CORPUSCULAR HGB CONC 31.9 g/dL (31-35); MEAN CORPUSCULAR VOLUME 88.8 fL (81-99); MONOCYTES # (AUTO) 0.6 (0.2-0.8); MONOCYTES % 8.8 % (4.4-11.3); NEUTROPHILS # (AUTO) 4.4 (2.1-6.9); NEUTROPHILS % 61.7 % (38.7-80.0); PLATELET COUNT 176 x10e3/uL (140-360); RED BLOOD COUNT 5.29 x10e6/uL (4.3-5.7); RED CELL DISTRIBUTION WIDTH 12.9 % (11.7-14.4)
[2020-05-22 00:38] LABS: ALBUMIN 4.2 g/dL (3.5-5.0); ALBUMIN/GLOBULIN RATIO 1.2 (0.8-2.0); ANION GAP 13.5 mmol/L (8-16); CALCIUM 9.3 mg/dL (8.4-10.2); CREATININE, SERUM 1.21 mg/dL (0.72-1.25); POTASSIUM 4.5 mmol/L (3.5-5.1)
[2020-05-22 00:47] LABS: BACTERIA,URINE FEW /HPF; BILIRUBIN,URINE NEGATIVE (NEGATIVE); CLARITY,URINE CLEAR (CLEAR); COLOR,URINE YELLOW (YELLOW); KETONES,URINE NEGATIVE (NEGATIVE); LEUKOCYTE ESTERASE ,URINE NEGATIVE (NEGATIVE); NITRITE,URINE NEGATIVE (NEGATIVE); PROTEIN,URINE DIPSTICK NEGATIVE (NEGATIVE); RBC,URINE 0-5 /HPF (0-5); URINE UROBILINOGEN 0.2 mg/dL (0.2 - 1); WBC,URINE (MAN) 0-5 /HPF (0-5)
[2020-05-22 00:48] LABS: EPITHELIAL CELLS,URINE FEW /LPF
[2020-05-22 00:51] LABS: CREATINE KINASE 71 IU/L (30-200)
[2020-05-22 00:58] LABS: CREATINE KINASE MB < 1.00 ng/mL (0-4.3)
--- NOTE | 2020-05-22 01:02 | Diagnostic Imaging Report ---
EXAMINATION: Head CT without contrast. HISTORY:Altered mental status. COMPARISON:None. TECHNIQUE: Multidetector axial images were obtained from the foramen magnum to the vertex without contrast. The images were reconstructed using brain and bone algorithms. Thin section brain images were reformatted into coronal and sagittal planes. Dose modulation, iterative reconstruction, and/or weight based adjustment of the mA/kV was utilized to reduce the radiation dose to as low as reasonably achievable. Intravenous contrast: None IMAGE QUALITY: Acceptable. FINDINGS: Skull/scalp: No lytic or blastic. lesions. No surgical changes. Parenchyma: Nonspecific few, scattered supratentorial white matter hypodensity are likely related to small vessel ischemic changes. No acute hemorrhage, mass or acute major vascular territorial infarct. Arteries: No density suggestive of thrombosis. Dural sinuses: No abnormal density suggestive of thrombosis. Ventricles: No hydrocephalus or displacement. Extra-axial spaces: No abnormal density. Brain volume: Mild generalized cerebral volume loss. Craniocervical junction: No mass, Chiari malformation, or basilar invagination. Sella: No mass. Paranasal/mastoid sinuses: Imaged portions unremarkable. IMPRESSION: No acute intracranial abnormality. Mild generalized cerebral volume loss. Mild supratentorial white matter microvascular ischemic changes. Signed by: Dr. Maru Pickett M.D. on 05/22/2020 12:58 AM
--- NOTE | 2020-05-22 01:47 | Diagnostic Imaging Report ---
EXAMINATION: CHEST SINGLE (PORTABLE) INDICATION: Altered metastases status COMPARISON: Chest x-ray 06/27/2018; abdominal CT 06/15/2019 FINDINGS: TUBES and LINES: Left lower chest wall cardiac device with lead projecting in the central mediastinum. LUNGS: Low lung volumes. Lungs are clear. No consolidations. PLEURA: No pleural effusion or pneumothorax. HEART AND MEDIASTINUM: The cardiomediastinal silhouette is borderline enlarged. Coronary stents. BONES AND SOFT TISSUES: No acute osseous lesion. Soft tissues are unremarkable. UPPER ABDOMEN: No free air under the diaphragm. IMPRESSION: Mild cardiac magnet. Low lung volumes, otherwise no acute radiographic cardiopulmonary or pneumonia. Signed by: Ivan Stone DO on 05/22/2020 1:44 AM
== END 2020-05-22 02:10 | disposition home or self-care (01) ==
LOC: ER 23:50
DX: R41.0 Disorientation, unspecified (principal); I10 Essential (primary) hypertension; E11.9 Type 2 diabetes mellitus without complications; I25.10 Atherosclerotic heart disease of native coronary artery without angina pectoris; E78.5 Hyperlipidemia, unspecified; I25.2 Old myocardial infarction; Z95.5 Presence of coronary angioplasty implant and graft
CPT/HCPCS: 36415; 70450; 71045; 80053; 81001; 82550; 82553; 84484; 85025; 93005; 99284

== ENCOUNTER → 2021-07-26 | Day surgery (SDC) | payer MEDICARE ==
[2021-07-24 09:06] LABS: BASOPHILS % 0.3 % (0.0-1.0); EOSINOPHILS # (AUTO) 0.1 (0.0-0.4); EOSINOPHILS % 1.5 % (0.0-6.0); HEMATOCRIT 47.9 % (38.2-49.6); HEMOGLOBIN 15.3 g/dL (14.0-18.0); LYMPHOCYTES % 29.4 % (18.0-39.1); MEAN CORPUSCULAR HEMOGLOBIN 28.8 pg (28-32); MEAN CORPUSCULAR HGB CONC 31.9 g/dL (31-35); MEAN CORPUSCULAR VOLUME 90.2 fL (81-99); MONOCYTES # (AUTO) 0.6 (0.2-0.8); MONOCYTES % 8.2 % (4.4-11.3); NEUTROPHILS # (AUTO) 4.1 (2.1-6.9); NEUTROPHILS % 60.3 % (38.7-80.0); PLATELET COUNT 190 x10e3/uL (140-360); RED BLOOD COUNT 5.31 x10e6/uL (4.3-5.7); RED CELL DISTRIBUTION WIDTH 12.9 % (11.7-14.4)
[2021-07-24 09:16] LABS: INR 0.93; PROTHROMBIN TIME 12.7 seconds (11.9-14.5)
[2021-07-24 09:17] LABS: PARTIAL THROMBOPLASTIN TIME 27.9 seconds (23.8-35.5)
[2021-07-24 09:28] LABS: ALBUMIN 3.8 g/dL (3.5-5.0); ALBUMIN/GLOBULIN RATIO 1.1 (0.8-2.0); ANION GAP 10.3 mmol/L (8-16); CALCIUM 8.7 mg/dL (8.4-10.2); CHOL/HDL RATIO 4.4 (3.9-4.7); CREATININE, SERUM 1.36 mg/dL (0.72-1.25); POTASSIUM 4.3 mmol/L (3.5-5.1)
[2021-07-26] VITALS (11 sets, daily range): BP systolic 117–156; BP diastolic 53–100
[~2021-07-26] MED LIST changes: +ATORVASTATIN CA20 MG PO; +FENTANYL CITRATE/PF 100MCG/2 ML INJ ONE; -GABAPENTIN100 MG; +GABAPENTIN100 MG PO; +HEPARIN SOD (PORCINE) 1000 UNIT/ML 30ML ONE; +HEPARIN SOD/SOD CHLORIDE 2,000 ML ONE; +IOPAMIDOL 300MG/ML 100 ML INFUS..BTL IV ONE; +LIDOCAINE HCL 2% LOCAL 20 ML VIAL ONE; +MIDAZOLAM HCL 2 MG/2 ML VIAL ONE; +NITROGLYCERIN/D5W 200 MCG/ML 250 ML ONE; +SODIUM CHLORIDE 0.9% 1000ML 1,000 ML ONE; +[UNRECOGNIZED DRUG - OTHER] PO
== END | disposition home or self-care (01) ==
LOC: CATH LAB 07:57
PROVIDERS: ATTEND Internal Medicine Cardiovascular Disease
DX: I70.213 Atherosclerosis of native arteries of extremities with intermittent claudication, bilateral legs (principal); I70.92 Chronic total occlusion of artery of the extremities; I25.10 Atherosclerotic heart disease of native coronary artery without angina pectoris; I25.83 Coronary atherosclerosis due to lipid rich plaque; E11.22 Type 2 diabetes mellitus with diabetic chronic kidney disease; I13.0 Hypertensive heart and chronic kidney disease with heart failure and stage 1 through stage 4 chronic kidney disease, or unspecified chronic kidney disease; N18.9 Chronic kidney disease, unspecified; I50.22 Chronic systolic (congestive) heart failure; E78.5 Hyperlipidemia, unspecified; Z01.812 Encounter for preprocedural laboratory examination; Z20.822 Contact with and (suspected) exposure to COVID-19; Z79.02 Long term (current) use of antithrombotics/antiplatelets; Z79.82 Long term (current) use of aspirin; Z79.84 Long term (current) use of oral hypoglycemic drugs; Z95.810 Presence of automatic (implantable) cardiac defibrillator
CPT/HCPCS: 36415; 37228; 37252; 75625; 76937; 80053; 80061; 85025; 85610; 85730; C1753; C1760; C1769 ×4; C1887; C1894; J1644; J2001; J2250; J3010; J7030; Q9967; U0002; 75630; 99152; 99153

== ENCOUNTER 2024-10-25 14:21 | Emergency (ER) | payer MEDICARE ==
[~2024-10-25] VITALS: Ht 157.5 cm; Wt 73.0 kg
[~2024-10-25 14:21] MED LIST changes: -FENTANYL CITRATE/PF 100MCG/2 ML INJ ONE; -HEPARIN SOD (PORCINE) 1000 UNIT/ML 30ML ONE; -HEPARIN SOD/SOD CHLORIDE 2,000 ML ONE; -IOPAMIDOL 300MG/ML 100 ML INFUS..BTL IV ONE; -LIDOCAINE HCL 2% LOCAL 20 ML VIAL ONE; -MIDAZOLAM HCL 2 MG/2 ML VIAL ONE; -NITROGLYCERIN/D5W 200 MCG/ML 250 ML ONE; -SODIUM CHLORIDE 0.9% 1000ML 1,000 ML ONE
[2024-10-25 15:52] LABS: BASOPHILS % 0.3 % (0.0-1.0); EOSINOPHILS # (AUTO) 0.1 (0.0-0.4); EOSINOPHILS % 1.1 % (0.0-6.0); HEMATOCRIT 53.6 % (38.2-49.6); HEMOGLOBIN 17.1 g/dL (14.0-18.0); LYMPHOCYTES # (AUTO) 1.8 (1.0-3.2); LYMPHOCYTES % 19.5 % (18.0-39.1); MEAN CORPUSCULAR HEMOGLOBIN 29.4 pg (28-32); MEAN CORPUSCULAR HGB CONC 31.9 g/dL (31-35); MEAN CORPUSCULAR VOLUME 92.1 fL (81-99); MONOCYTES # (AUTO) 0.7 (0.2-0.8); MONOCYTES % 7.1 % (4.4-11.3); NEUTROPHILS # (AUTO) 6.6 (2.1-6.9); NEUTROPHILS % 71.8 % (38.7-80.0); PLATELET COUNT 197 x10e3/uL (140-360); RED BLOOD COUNT 5.82 x10e6/uL (4.3-5.7); WHITE BLOOD COUNT 9.19 x10e3/uL (4.8-10.8)
[2024-10-25] MEDS: SODIUM CHLORIDE 0.9% 500ML 500 ML IV ONE (15:56)
[2024-10-25] MEDS: ASPIRIN 81 MG CHEW TAB PO ONE (15:56)
[2024-10-25] MEDS: CLOPIDOGREL BISULFATE 75 MG TAB PO ONE ×2 (15:56→17:23)
[2024-10-25 16:07] LABS: INR 0.91; PROTHROMBIN TIME 12.8 seconds (11.9-14.5)
[2024-10-25 16:08] LABS: PARTIAL THROMBOPLASTIN TIME 26.2 seconds (23.8-35.5)
[2024-10-25 16:17] LABS: ALBUMIN 4.2 g/dL (3.5-5.0); ALBUMIN/GLOBULIN RATIO 1.1 (0.8-2.0); ANION GAP 16.2 mmol/L (8-16); BILIRUBIN,TOTAL 0.4 mg/dL (0.2-1.2); CALCIUM 9.8 mg/dL (8.4-10.2); CREATININE, SERUM 1.1 mg/dL (0.72-1.25); MAGNESIUM 2.2 MG/DL (1.3-2.1); POTASSIUM 4.2 mmol/L (3.5-5.1); TOTAL PROTEIN 8.1 g/dL (6.5-8.1)
[2024-10-25 16:35] LABS: TROPONIN I 0.412 ng/mL (0-0.300)
[2024-10-25] MEDS: ENOXAPARIN SODIUM INJ 100 MG/ML SYR SC ONE (17:14)
[2024-10-25] MEDS: METOPROLOL TARTRATE 25 MG TAB PO ONE (17:15)
[2024-10-25] MEDS: CLOPIDOGREL BISULFATE 300 MG TAB-DO NOT STOCK PO ONE (17:23)
[2024-10-25 18:17] VITALS: PULSE 57; RESP 18; TEMP 98.3
[2024-10-25 19:33] VITALS: BP 127/70; PULSE 59; RESP 16; O2SAT 100
== END 2024-10-25 19:15 | disposition other institution (70) ==
LOC: ER 15:17
DX: R06.00 Dyspnea, unspecified (principal); I21.4 Non-ST elevation (NSTEMI) myocardial infarction; I10 Essential (primary) hypertension; E11.65 Type 2 diabetes mellitus with hyperglycemia; E78.5 Hyperlipidemia, unspecified; E78.00 Pure hypercholesterolemia, unspecified; I25.10 Atherosclerotic heart disease of native coronary artery without angina pectoris; R94.31 Abnormal electrocardiogram [ECG] [EKG]; I25.2 Old myocardial infarction; Z95.5 Presence of coronary angioplasty implant and graft
CPT/HCPCS: 36415; 71045; 80053; 82550; 83735; 83880; 84484; 85025; 85610; 85730; 93005; 99284; J1650; J7040

== ENCOUNTER → 2025-03-03 | Outpatient (REF) | payer MEDICARE | LOC: US 07:42 | PROVIDERS: ATTEND Family Medicine | DX: I71.40 Abdominal aortic aneurysm, without rupture, unspecified (principal) | CPT/HCPCS: 76770 ==